=== PATIENT | female | born 1970 | race Caucasian/White ===

== ENCOUNTER → 2017-11-21 | Outpatient (CLI) | payer BC ==
--- NOTE | 2017-11-22 11:17 | MM ---
Reason for exam: screening (asymptomatic). Last mammogram was performed 2 years and 10 months ago. History: Took hormonal contraceptives for 6 years beginning at age 16. Physical Findings: A clinical breast exam by your physician is recommended on an annual basis and results should be correlated with mammographic findings. MG Screening Mammo w CAD Bilateral CC and MLO view(s) were taken. Prior study comparison: January 06, 2015, bilateral MG screening mammo w CAD. September 12, 2010, CAD bilateral diagnostic mammogram. There are scattered fibroglandular densities. Finding: There are typically benign circumscribed round oval stable masses in both breasts. No suspicious abnormality. No significant changes in finding since January 06, 2015 and September 12, 2010. ASSESSMENT: Benign, BI-RAD 2 RECOMMENDATION: Routine screening mammogram of both breasts in 1 year.
== END | disposition home or self-care (01) ==
LOC: RADMAMWWP 16:44
PROVIDERS: ATTEND Obstetrics & Gynecology
DX: Z12.31 Encounter for screening mammogram for malignant neoplasm of breast (principal)
CPT/HCPCS: 77067

== ENCOUNTER 2018-04-20 18:38 | Emergency (ER) | payer BC ==
[2018-04-20 19:13] VITALS: RESP 18
[2018-04-20] MEDS ORDERED: METOCLOPRAMIDE 5 MG/ML 2 ML VIAL IVP STA (20:21)
[2018-04-20] MEDS ORDERED: diphenhydrAMINE 50 MG/ML 1 ML VIAL IVP STA (20:22)
[2018-04-20] MEDS ORDERED: SODIUM CHLORIDE 0.9% 1,000 ML IV ONE (20:22)
--- NOTE | 2018-04-20 20:28 | ED ---
Headache HPI - General Chief Complaint: Headache Stated Complaint: Headache Time Seen by Provider: 04/20/18 20:07 Mode of arrival: ambulatory Limitations: no limitations - History of Present Illness Initial Comments: 48 yoF presenting with COLEMAN for the past 9 days. Patient states the COLEMAN is constant , not worse in the morning, accompanied by photophobia and nausea, and not alleviated by anything. The patient states she has take Sumitriptan and Advil without relief. She was seen at [facility] today and given a shot of toradol without relief. She states she normally gets HAs similar to this one but they don't last this long. She has never seen a neurologist. She is concerned because her blood pressure has been high at [facility] today and during this visit. - Related Data Home Medications Medication Instructions Recorded Confirmed FLUoxetine HCL [Fluoxetine HCl] 40 mg PO HS 09/16/15 09/16/15 Previous Rx's Medication Instructions Recorded Metoclopramide HCl [Reglan] 10 mg PO Q8HR PRN #15 tablet 04/20/18 Allergies Allergy/AdvReac Type Severity Reaction Status Date / Time No Known Allergies Allergy Verified 04/20/18 19:12 Review of Systems ROS Statement: Those systems with pertinent positive or pertinent negative responses have been documented in the HPI. Review of Systems Constitutional: Denies fever, chills Eyes: Denies change in vision, Denies pain Ears, nose, mouth, throat: Denies headaches, Denies sore throat Cardiovascular: Denies chest pain. Denies palpitations Respiratory: Denies shortness of breath, Denies cough Gastrointestinal: Denies abdominal pain. Denies nausea, vomiting, diarrhea. Genitourinary: Denies hematuria, Denies infections Musculoskeletal: Denies pain, Denies swelling Integumentary: Denies rash Neurological: Positive headache. Denies focal weakness, focal numbness Psychiatric: Denies anxiety, Denies depression Hematologic/Lymphatic: Denies easy bleeding or bruising . ROS Other: All systems not noted in ROS Statement are negative. Past Medical History Past Medical History: Asthma, Sleep Apnea/CPAP/BIPAP, Thyroid Disorder History of Any Multi-Drug Resistant Organisms: None Reported Past Surgical History: Tubal Ligation Additional Past Surgical History / Comment(s): thyroid sx Past Psychological History: Depression Smoking Status: Former smoker Past Alcohol Use History: None Reported Past Drug Use History: Marijuana General Exam - General Exam Comments Initial Comments: Those systems with pertinent positive or pertinent negative responses have been documented in the HPI. General: Awake, alert, No acute Distress HENT: Normocephalic. Atraumatic Eyes: PERRL. EOMI. No scleral icterus. No injected conjunctiva Neck: Full ROM Chest/Lungs: Clear to auscultation bilaterally. No wheezing, rhonchi, or rales Cardiac: Regular rate, rhythm. No murmurs or rubs Abdomen/GI: Soft, nontender, nondistended. No rebound, guarding, or rigidity. Musculoskeletal: Full ROM Skin: Warm, dry, intact Neurologic: A/Ox3, no weakness, no sensory deficit, no abnormal gait, no coordination deficit. Finger to nose intact. Limitations: no limitations Course Vital Signs 04/20/18 04/20/18 19:10 22:27 Temperature 98.4 F 98.0 F Pulse Rate 76 72 Respiratory 18 18 Rate Blood Pressure 154/87 147/99 O2 Sat by Pulse 98 98 Oximetry Medical Decision Making - Medical Decision Making 48-year-old female presenting with headache. Initial exam the patient is awake , alert, no acute distress. She is mildly hypertensive but her vital signs are otherwise stable. On exam the patient has no neurologic deficit, she is nontoxic-appearing, and has no infectious or meningeal signs. When I discussed with the patient the plan for treating her symptoms she became agitated and angry. She was upset that her blood pressure was not being lowered and states she had spent "all of her money being seen at the clinic and she is going to be pissed if she has to come back tomorrow because she has a headache again." I discussed with the patient the rationale for not acutely lowering blood pressure and headaches as my concern for causing an ischemic stroke is higher than my suspicion for a hypertensive emergency. Offered the patient CT imaging of her head, however I did discuss that I thought this would be negative and she is neurologically intact, nontoxic appearing, and the onset of her symptoms has been 9 days. The onset of her COLEMAN was not its highest intensity to suggest subarachnoid hemorrhage. The patient declined CT imaging of her head. Declined blood work. Discussed with the patient that she needs to see a neurologist for a diagnosis and evaluation of her headaches. Offered the patient a work note and she declined stating she is "the only one who knows her to do her job." Patient has no chest pain or shortness of breath. Patient's COLEMAN resolved with treatment. On repeat exam she is more calm, BP has improved, she continues to be without neurologic deficit. Patient apologized for previous outburst and vocalized frustration her feeling unwell recently. She requested cardiology and neurology referrals, which she was given. She was instructed to stop taking NSAIDs for COLEMAN and to take Tylenol as I am concerned she is having rebound HAs. The patient's headaches are not consistent with acute stroke, hemorrhage, mass, meningitis, or other acute pathology. No further emergent workup indicated. The patient was given return to ED instructions. They were instructed to follow up with their primary care provider. Stable for discharge at this time. Disposition Clinical Impression: Headache, Hypertension Disposition: HOME SELF-CARE Condition: Good Instructions: Acute Headache (ED) Additional Instructions: Reglan can sometimes make people feel anxious. If this happens take 50 mg of Benadryl, or take the Benadryl when you take the Reglan. Refrain from using Advil for headaches. Use 650 mg-1000 mg of Tylenol. Prescriptions: Metoclopramide HCl [Reglan] 10 mg PO Q8HR PRN #15 tablet PRN Reason: Headache Is patient prescribed a controlled substance at d/c from ED?: No Referrals: None,Stated [Primary Care Provider] - 1-2 days Ariadne Childers MD [STAFF PHYSICIAN] - 1-2 days Leo Epperson MD [STAFF PHYSICIAN] - 1-2 days Rudolph Nina MD [STAFF PHYSICIAN] - 1-2 days
[2018-04-20] MEDS ORDERED: ACETAMINOPHEN IV (For NPO) 1,000 MG in EMPTY BAG 1 BAG IVPB ONE (20:30)
[2018-04-20 22:28] VITALS: BP 147/99; PULSE 72; TEMP 98
== END 2018-04-20 22:28 | disposition home or self-care (01) ==
LOC: EC 18:38
DX: I10 Essential (primary) hypertension (principal); R51 Headache; R45.1 Restlessness and agitation; R45.4 Irritability and anger; H53.149 Visual discomfort, unspecified; R11.0 Nausea; F32.9 Major depressive disorder, single episode, unspecified; G47.30 Sleep apnea, unspecified; Z87.891 Personal history of nicotine dependence; Z79.899 Other long term (current) drug therapy; Z99.89 Dependence on other enabling machines and devices
CPT/HCPCS: 99283; 96365; 96375 ×2; 96361; J1200; J2765; J0131

== ENCOUNTER → 2018-05-16 | Outpatient (CLI) | payer BC ==
--- NOTE | 2018-05-16 16:09 | CT ---
EXAMINATION TYPE: CT brain wo/w con DATE OF EXAM: 05/16/2018 COMPARISON: None INDICATION: Headache DLP: 2312 mGycm, Automated exposure control for dose reduction was used. CONTRAST: 100 mL Isovue-300 CT of the brain is performed utilizing 3 mm thick sections through the posterior fossa and 3 mm thick sections through the remaining calvarium. Study is performed within 24 hours of arrival to the hosp [facility]. No abnormal hyperdensity is present to suggest an acute intracranial hemorrhage. No mass lesion is evident. No acute infarcts are evident. No abnormal enhancement is evident. Ventricles and sulci are appropriate for the patient age. Some mucosal thickening is within the inferior maxillary sinuses. Some mucosal thickening is within e thmoid air cells. IMPRESSIONS: 1. No acute intracranial process, Pre or Postcontrast.
== END | disposition home or self-care (01) ==
LOC: RADCTMAIN 06:48
PROVIDERS: ATTEND Internal Medicine
DX: R51 Headache (principal)
CPT/HCPCS: 70470; Q9967

== ENCOUNTER → 2019-06-08 | Outpatient (CLI) | payer BC ==
--- NOTE | 2019-06-09 09:04 | MM ---
Reason for exam: screening (asymptomatic). Last mammogram was performed 1 year and 6 months ago. History: Took hormonal contraceptives for 6 years beginning at age 16. Physical Findings: A clinical breast exam by your physician is recommended on an annual basis and results should be correlated with mammographic findings. MG Screening Mammo w CAD Bilateral CC and MLO view(s) were taken. Prior study comparison: November 21, 2017, bilateral MG screening mammo w CAD. January 06, 2015, bilateral MG screening mammo w CAD. There are scattered fibroglandular densities. There is chronic nodularity in the left breast. No significant changes when compared with prior studies. ASSESSMENT: Negative, BI-RAD 1 RECOMMENDATION: Routine screening mammogram of both breasts in 1 year.
== END | disposition home or self-care (01) ==
LOC: RADMAMWWP 06:56
PROVIDERS: ATTEND Obstetrics & Gynecology
DX: Z12.31 Encounter for screening mammogram for malignant neoplasm of breast (principal)
CPT/HCPCS: 77067

== ENCOUNTER → 2022-02-14 | Outpatient (CLI) | payer OTHER ==
--- NOTE | 2022-02-15 09:08 | MM ---
Reason for Exam: Screening (asymptomatic). Last mammogram was performed 2 year(s) and 8 month(s) ago. Patient History: Menarche at age 10. First Full-Term at age 25. Postmenopausal. Hormonal Contraceptives for 6 years from age 16 until age 22. Risk Values: Angela 5 year model risk: 1.2%. NCI Lifetime model risk: 9.4%. Prior Study Comparison: 01/06/2015 Bilateral Screening Mammogram, [facility]. 11/21/2017 Bilateral Screening Mammogram, [facility]. 06/08/2019 Bilateral Screening Mammogram, [facility]. Tissue Density: There are scattered fibroglandular densities. Findings: Analyzed By CAD. There is no suspicious group of microcalcifications or new suspicious mass in either breast. Chronic nodularity within both breasts. No significant change from prior exams. Overall Assessment: Benign, BI-RAD 2 Management: Screening Mammogram of both breasts in 1 year. A clinical breast exam by your physician is recommended on an annual basis and results should be correlated with mammographic findings. Electronically signed and approved by: Jorge Royal D.O.
== END | disposition home or self-care (01) ==
LOC: RADMAMWWP 15:47
PROVIDERS: ATTEND Obstetrics & Gynecology
DX: Z12.31 Encounter for screening mammogram for malignant neoplasm of breast (principal)
CPT/HCPCS: 77067

== ENCOUNTER → 2022-02-28 | Outpatient (CLI) | payer OTHER ==
[2022-02-28 15:16] LABS: Basophils # (A) 0.03 X 10*3/uL (0.00-0.10); Basophils % (A) 0.4 %; Eosinophils # (A) 0.31 X 10*3/uL (0.04-0.35); Eosinophils % (A) 4.6 %; HCT 45.7 % (37.2-46.3); HGB 15.2 g/dL (12.0-15.0); Immature Grans, Automated 0.1 %; Lymphocytes # (A) 1.25 X 10*3/uL (0.90-5.00); Lymphocytes % (A) 18.7 %; MCH 29.2 pg (27.0-32.0); MCHC 33.3 g/dL (32.0-37.0); MCV 87.9 fL (80.0-97.0); Mean Platelet Volume 10.1 fL (9.5-12.2); Monocytes # (A) 0.38 X 10*3/uL (0.20-1.00); Monocytes % (A) 5.7 %; NRBC Per 100 WBC 0 /100 WBCS (0.0-0.0); Neutrophils # (A) 4.72 X 10*3/uL (1.80-7.70); Neutrophils % (A) 70.5 %; Platelet Count 279 X 10*3/uL (140-440); RDW 13.1 % (11.5-14.5)
[2022-02-28 17:05] LABS: ALT 30 U/L (8-44); AST 27 U/L (13-35); African American GFR (CKD) 74.5 (60.0-200.0); Albumin 4.6 g/dL (3.8-4.9); Albumin/Globulin Ratio 1.79 (1.60-3.17); Alkaline Phosphatase 115 U/L (41-126); Blood Urea Nitrogen 15.2 mg/dL (9.0-27.0); Calcium 9.5 mg/dL (8.7-10.3); Carbon Dioxide 25.3 mmol/L (20.0-27.5); Chloride 103 mmol/L (96-109); Chol/HDL Ratio 4.87 Ratio; Globulin 2.6 g/dL (1.6-3.3); Glucose 98 mg/dL (70-110); LDL Cholesterol,Calculated 163.9 mg/dL (0.0-131.0); Non-African American GFR(CKD) 64.3 (60.0-200.0); Potassium 4.8 mmol/L (3.5-5.5); Sodium 141 mmol/L (135-145); Total Protein 7.1 g/dL (6.2-8.2)
== END | disposition home or self-care (01) ==
LOC: LABWHC1 09:07
PROVIDERS: ATTEND Internal Medicine
DX: Z00.00 Encounter for general adult medical examination without abnormal findings (principal); E55.9 Vitamin D deficiency, unspecified
CPT/HCPCS: 36415; 80053; 80061; 82306; 84443; 85025

== ENCOUNTER → 2023-04-19 | Outpatient (CLI) | payer OTHER ==
[2023-04-19 11:48] LABS: Basophils # (A) 0.04 X 10*3/uL (0.00-0.10); Basophils % (A) 0.7 %; Eosinophils # (A) 0.34 X 10*3/uL (0.04-0.35); Eosinophils % (A) 5.8 %; HGB 14.4 g/dL (12.0-15.0); Lymphocytes # (A) 1.38 X 10*3/uL (0.90-5.00); Lymphocytes % (A) 23.6 %; MCH 29.6 pg (27.0-32.0); MCHC 33.5 g/dL (32.0-37.0); MCV 88.5 FL (80.0-97.0); Mean Platelet Volume 10.3 FL (9.5-12.2); Monocytes # (A) 0.39 X 10*3/uL (0.20-1.00); Monocytes % (A) 6.7 %; NRBC Per 100 WBC 0 X 10*3/uL (0.00-0.01); Neutrophils # (A) 3.68 X 10*3/uL (1.80-7.70); Platelet Count 234 X 10*3/uL (140-440); RBC 4.86 X 10*6/uL (4.10-5.20); WBC 5.84 X 10*3/uL (4.50-10.00)
[2023-04-19 12:26] LABS: Blood Urea Nitrogen 18.9 mg/dL (9.0-27.0); Carbon Dioxide 24.2 mmol/L (21.6-31.8); Chloride 106 mmol/L (96-109); Glucose 107 mg/dL (70-110); LDL Cholesterol,Calculated 134.7 mg/dL (0.0-131.0); Potassium 4.4 mmol/L (3.5-5.5); Sodium 141 mmol/L (135-145)
[2023-04-19 12:27] LABS: ALT 25 U/L (8-44); AST 26 U/L (13-35); Albumin 4.3 g/dL (3.8-4.9); Albumin/Globulin Ratio 1.79 Ratio (1.60-3.17); Alkaline Phosphatase 99 U/L (41-126); Calcium 9.8 mg/dL (8.7-10.3); Globulin 2.4 g/dL (1.6-3.3); Total Bilirubin 0.3 mg/dL (0.3-1.2); Total Protein 6.7 g/dL (6.2-8.2)
== END | disposition home or self-care (01) ==
LOC: LABWHC1 07:01
PROVIDERS: ATTEND Internal Medicine
DX: Z00.01 Encounter for general adult medical examination with abnormal findings (principal); Z11.59 Encounter for screening for other viral diseases; E55.9 Vitamin D deficiency, unspecified
CPT/HCPCS: 36415; 80053; 80061; 82306; 84443; 85025; 86803

== ENCOUNTER → 2023-10-18 | Outpatient (CLI) | payer OTHER ==
--- NOTE | 2023-10-18 19:33 | CT ---
EXAMINATION TYPE: CT abdomen pelvis w con DATE OF EXAM: 10/18/2023 COMPARISON: NONE HISTORY: 53-year-old female K85.90 acute pancreatitis TECHNIQUE: Contiguous axial scanning of the abdomen and pelvis following administration of 100 ml Iso juno 300 IV contrast. Delayed images through the kidneys and coronal/sagittal reconstructions perform ed. CT DLP: 1313.7 mGycm Automated exposure control for dose reduction was used. FINDINGS: The heart is normal size without pericardial effusion. Some minimal strandy atelectasis periphery of the left base. No pleural effusion. Some focal fat along the anterior falciform ligament. Portal venous system is patent. No biliary duct al dilatation. There is a 4.1 cm diverticulum of the third portion of the duodenum projecting into th e pancreatic head region. Gallbladder is small and collapsed. Indeterminate 1.7 cm nodule right adrenal gland. Left adrenal gland, bilateral kidneys, spleen, and pancreas show no gross abnormality. No dilated small bowel, free fluid, or free air. No mesenteric or retroperitoneal lymphadenopathy. Small fatty umbilical hernia measuring 2.2 cm wide. Normal appendix. Scattered left-sided colonic diverticulosis. No pericolonic inflammatory change. Bladder collapsed. Uterus anteverted. Bulky appearance to the uterus. Both ovaries are visualized. No abnormal fluid collection the pelvis or pelvic lymphadenopathy. A couple left-sided pelvic phlebolit hs are noted. Bones: Moderate to severe degenerative disc disease L5-S1. IMPRESSION: 1. NO SPECIFIC CT FINDINGS OF ACUTE PANCREATITIS. THIS DOES NOT EXCLUDE THE POSSIBILITY OF A MILD ACU TE INTERSTITIAL PANCREATITIS IN THE APPROPRIATE CLINICAL SETTING. 2. BULKY UTERUS, LIKELY DUE TO UNDERLYING FIBROID CHANGE. PELVIC ULTRASOUND IS INDICATED. 3. INDETERMINATE 1.7 CM RIGHT ADRENAL GLAND NODULE. SIX-MONTH FOLLOW-UP ADRENAL MASS PROTOCOL CT TO Pratik MOLINA. 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 4. SMALL 2.2 CM FATTY UMBILICAL HERNIA.
== END | disposition home or self-care (01) ==
LOC: RADCTMAIN 16:08
PROVIDERS: ATTEND Internal Medicine
DX: K85.90 Acute pancreatitis without necrosis or infection, unspecified (principal); K42.9 Umbilical hernia without obstruction or gangrene; N85.2 Hypertrophy of uterus
CPT/HCPCS: 74177; Q9967